=== PATIENT | male | born 1960 | race Caucasian/White ===

== ENCOUNTER 2021-06-15 19:18 | Emergency (ER) | payer OTHER ==
[~2021-06-15 19:18] MED LIST: CLEOCIN HCL300 MG PO; IBUPROFEN600 MG PO; MEDROL4 MG PO; NORFLEX 100 MG100 MG PO; Viscous lidocaine 2%
[2021-06-15 20:03] LABS: HEMOGLOBIN 15.2 gm/dl (14.0-17.5); RED BLOOD COUNT 4.8 M/UL (4.20-5.50); WHITE BLOOD COUNT 12.3 K/UL (4.5-11.0)
[2021-06-15 20:22] LABS: BUN/CREATININE RATIO 14 (0-10)
[2021-06-15] MEDS ORDERED: PREDNISONE 20 M20 MG PO (21:33)
[2021-06-15] MEDS ORDERED: VIBRAMYCIN100 MG PO (21:33)
== END 2021-06-15 22:02 | disposition home or self-care (01) ==
LOC: ER1 19:18
PROVIDERS: Physician Assistant Medical
DX: J44.1 Chronic obstructive pulmonary disease with (acute) exacerbation (principal); Z20.822 Contact with and (suspected) exposure to COVID-19
CPT/HCPCS: 71045; 80053; 82550; 82553; 83874; 84484; 85025; 93005; 94664; 96372; 99285; J1100; U0002